=== PATIENT | female | born 1965 | race Caucasian/White ===

== ENCOUNTER 2022-08-25 09:26 | Outpatient (CLI) | payer OTHER ==
[~2022-08-25 09:26] MED LIST: Iopamidol 300 61% 100 ML VIAL FS ONE
== END 2022-08-25 09:27 | disposition home or self-care (01) ==
LOC: CSHCT 09:26
PROVIDERS: ATTEND Specialist
DX: K42.9 Umbilical hernia without obstruction or gangrene (principal); N83.202 Unspecified ovarian cyst, left side; N83.201 Unspecified ovarian cyst, right side; Z90.710 Acquired absence of both cervix and uterus
CPT/HCPCS: 74177

== ENCOUNTER 2024-07-18 14:59 | Outpatient (CLI) | payer BC | END 2024-07-18 15:00 | disposition home or self-care (01) | LOC: CSHMAMMO 14:59 | PROVIDERS: ATTEND Nurse Practitioner | DX: Z12.31 Encounter for screening mammogram for malignant neoplasm of breast (principal) | CPT/HCPCS: 77063; 77067 ==